=== PATIENT | female | born 2000 | race Caucasian/White ===

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

== ENCOUNTER 2021-03-15 12:06 | Emergency (ER) | payer MEDICAID ==
[~2021-03-15] VITALS: Ht 165.1 cm; Wt 81.8 kg
[2021-03-15 12:20] VITALS: BP 119/76; TEMP 98
[2021-03-15 12:59] LABS: STREP SCREEN NEGATIVE
[2021-03-15 13:30] VITALS: PULSE 109
== END 2021-03-15 13:30 | disposition home or self-care (01) ==
LOC: COL.ER 12:06
PROVIDERS: Nurse Practitioner Family
DX: J02.8 Acute pharyngitis due to other specified organisms (principal)

== ENCOUNTER 2021-11-02 15:08 | Emergency (ER) | payer MEDICAID ==
[~2021-11-02] VITALS: Ht 165.1 cm; Wt 81.8 kg
[2021-11-02 15:14] VITALS: TEMP 97.6
[2021-11-02 17:10] VITALS: BP 136/78; PULSE 62
== END 2021-11-02 17:10 | disposition home or self-care (01) ==
LOC: COL.ER 15:08
DX: S90.212A Contusion of left great toe with damage to nail, initial encounter (principal); W20.8XXA Other cause of strike by thrown, projected or falling object, initial encounter; Y92.39 Other specified sports and athletic area as the place of occurrence of the external cause

== ENCOUNTER 2022-04-21 09:33 | Emergency (ER) | payer MEDICAID ==
[~2022-04-21] VITALS: Ht 167.6 cm; Wt 77.3 kg
[2022-04-21 09:40] VITALS: BP 112/76; TEMP 97.9
[2022-04-21 11:03] VITALS: PULSE 65
== END 2022-04-21 11:03 | disposition home or self-care (01) ==
LOC: COL.ER 09:33
DX: S83.92XA Sprain of unspecified site of left knee, initial encounter (principal); X58.XXXA Exposure to other specified factors, initial encounter